=== PATIENT | male | born 1945 | race Caucasian/White ===

== ENCOUNTER 2019-05-15 13:34 | Emergency (ER) | payer MEDICARE, OTHER ==
[~2019-05-15] VITALS: Ht 172.7 cm; Wt 67.9 kg
--- NOTE | 2019-05-15 14:15 | NUR ---
PT AMBULATED TO ROOM WITH A STEADY GAIT. PT IN WITH C/O OF HEADACHES SINCE 05/12/19 AND HIGH BLOOD PRESSURES
[2019-05-15] MEDS ORDERED: LOSA50TA14 PO (14:20)
[2019-05-15 14:23] LABS: MEAN CORPUSCULAR HGB CONC 33.5 g/dL (33.2-36.2); MEAN CORPUSCULAR VOLUME 89.5 fL (81-97); MEAN PLATELET VOLUME 8.5 fL (7.4-10.4); PLATELET COUNT 288 x10^3/uL (130-400); RED BLOOD COUNT 4.65 x10^6/uL (4.38-5.82); RED CELL DISTRIBUTION WIDTH 13.7 % (9.4-14.8)
[2019-05-15] MEDS ORDERED: ENALAPRIL 10 MG TABLET PO SCH (14:30)
[2019-05-15] MEDS ORDERED: ACETAMINOPHEN 500 MG TABLET PO ONE (14:30)
[2019-05-15] MEDS ORDERED: ACETAMINOPHEN 500 MG TABLET ONE ×2 (14:30→14:39)
[2019-05-15 14:31] LABS: ANION GAP 6 mmol/L (5-15); CALCIUM 9.4 mg/dL (8.5-10.1); CHLORIDE 107 mmol/L (98-107); CREATININE 1.13 mg/dL (0.7-1.3)
[2019-05-15 15:06] LABS: BASOPHILS # (AUTO) 0.02 x10^3/uL (0-0.1); BASOPHILS % (AUTO) 0 % (0-1); EOSINOPHILS % (AUTO) 0 % (1-7); LYMPHOCYTES # (AUTO) 1.12 x10^3/uL (1-3.4); LYMPHOCYTES % (AUTO) 13 % (22-44); MD SCAN; MONOCYTES # (AUTO) 0.55 x10^3/uL (0.2-0.8); MONOCYTES % (AUTO) 7 % (2-9); NEUTROPHILS # (AUTO) 6.71 x10^3/uL (1.8-6.8); NEUTROPHILS % (AUTO) 80 % (42-75)
[2019-05-15 15:29] VITALS: BP 163/84
--- NOTE | 2019-05-15 15:31 | NUR ---
Patient given discharge instructions and they have confirmed that they understand the instructions. Patient ambulatory with steady gait. pt verbalized understanding to fill perscipition
== END 2019-05-15 15:47 | disposition home or self-care (01) ==
LOC: ED 15:35
DX: I10 Essential (primary) hypertension (principal); G47.00 Insomnia, unspecified; R51 Headache; R53.83 Other fatigue
CPT/HCPCS: 36415; 71046; 80048; 85025; 93005; 99285

== ENCOUNTER 2019-05-26 12:43 | Outpatient (CLI) | payer MEDICARE, OTHER ==
[~2019-05-26 12:43] MED LIST: LOSA50TA14 PO
== END 2019-05-26 23:59 | disposition home or self-care (01) ==
LOC: CFH 12:43
PROVIDERS: ATTEND Nurse Practitioner Primary Care
DX: I67.82 Cerebral ischemia (principal); G31.89 Other specified degenerative diseases of nervous system
CPT/HCPCS: 70450